=== PATIENT | female | born 1995 | race Two or more races ===

== ENCOUNTER 2018-07-17 21:11 | Emergency (ER) | payer BC ==
[2018-07-17 21:18] VITALS: BP 133/84; PULSE 74; TEMP 98.4; BMI 29.9
--- NOTE | 2018-07-17 21:21 | PDOC ---
Rapid Medical Evaluation Chief Complaint: Pain, Acute Medical Evaluation: 07/17/18 21:16 I have performed a brief in-person evaluation of this patient. The patient presents with a chief complaint of: Pertinent physical exam findings: pale abd bloated with pain to RLQ I have ordered the following: UA / Ucg / CBC/ CMP/ US Pelvis The patient will proceed to the ED for further evaluation. 07/17/18 21:16 07/17/18 21:22 Discharge Disposition - Diagnosis Abdominal pain - Referrals - Patient Instructions - Post Discharge Activity
[2018-07-17 21:35] LABS: BASO % 1.3 % (0-2.0); EOS % 3.8 % (0-4.5); HEMATOCRIT 42.9 % (32.4-45.2); HEMOGLOBIN 14.2 GM/dL (10.7-15.3); LYMPH % 33.5 % (8-40); MCH 30.4 pg (25.7-33.7); MCHC 33.2 g/dl (32.0-36.0); MEAN CELL VOLUME 91.5 fl (80-96); MEAN PLT VOLUME 8.7 fl (7.5-11.1); MONO % 6.4 % (3.8-10.2); PLATELET COUNT 278 K/MM3 (134-434); RBC 4.69 M/mm3 (3.60-5.2); RDW 13.7 % (11.6-15.6); WHITE BLOOD COUNT 10.4 K/mm3 (4.0-10.0)
[2018-07-17 21:40] LABS: HCG,QUALITATIVE URINE Negative
[2018-07-17 21:57] LABS: ALK PHOS 68 U/L (45-117); BILIRUBIN,TOTAL 0.2 mg/dL (0.2-1); BLOOD UREA NITROGEN 9 mg/dL (7-18); CALCIUM 9.3 mg/dL (8.5-10.1); CHLORIDE 103 mmol/L (98-107); CO2 31 mmol/L (21-32); CREATININE 0.6 mg/dL (0.55-1.3); GLUCOSE,RANDOM 99 mg/dL (74-106); POTASSIUM 4.3 mmol/L (3.5-5.1); SGOT/AST 11 U/L (15-37); SGPT/ALT 15 U/L (13-61); SODIUM 139 mmol/L (136-145); TOT PROT 7.6 g/dl (6.4-8.2)
[2018-07-17 21:59] LABS: ANION GAP 6 MMOL/L (8-16)
[2018-07-17 22:00] LABS: EPI CELLS 1.4 /HPF (0-5); URINE APPEARANCE CLEAR; URINE BACTERIA 280.7 /hpf (NEGATIVE); URINE BILIRUBIN NEGATIVE (NEGATIVE); URINE CASTS 59 /hpf (0-8); URINE COLOR YELLOW; URINE GLUCOSE (UA) NEGATIVE (NEGATIVE); URINE KETONE NEGATIVE (NEGATIVE); URINE LEUK ESTERASE 2+ (NEGATIVE); URINE NITRITE NEGATIVE (NEGATIVE); URINE PROTEIN NEGATIVE (NEGATIVE); URINE RBC 6 /hpf (0-4); URINE UROBILINOGEN 0.2 mg/dL (0.2-1.0); URINE WBC 103 /hpf (0-5)
--- NOTE | 2018-07-17 22:01 | PDOC ---
History of Present Illness - General Chief Complaint: Pain Stated Complaint: LOWER BACK PAIN Time Seen by Provider: 07/17/18 21:35 History Source: Patient Exam Limitations: No Limitations - History of Present Illness Travel History: No Initial Comments: 07/17/18 21:56 HISTORY OF PRESENT ILLNESS: This is a 22-year-old woman with past medical history of polycystic ovarian syndrome on metformin who presents emergency department for evaluation of right pelvic pain radiating from her lower back. Patient states the pain started approximately 5 days ago and is being constant since that time. She reports when the pain started she was laying down and relaxing on vacation in [place]. Patient denies any vaginal bleeding, vaginal discharge, diarrhea, constipation, rectal bleeding. Patient reports slight suprapubic pressure with tingling after voiding which started when providing urine sample here. No recent travel or sick contacts. PAST MEDICAL HISTORY: PCOS SURGICAL HISTORY: Denies ALLERGIES: No known drug allergies REVIEW OF SYSTEMS General/Constitutional: Denies fever or chills. Denies weakness, weight change. HEENT: Denies change in vision. Denies ear pain or discharge. Denies sore throat. Cardiovascular: Denies chest pain or shortness of breath. Respiratory: Denies cough, wheezing, or hemoptysis. Gastrointestinal: Denies nausea, vomiting, diarrhea or constipation. Denies rectal bleeding. Genitourinary: see HPI Musculoskeletal: see HPI Skin and breasts: Denies rash or easy bruising. Neurologic: Denies headache, vertigo, loss of consciousness, or loss of sensation. Psychiatric: Denies depression or anxiety. Endocrine: Denies increased thirst. Denies abnormal weight change. Hematologic/Lymphatic: Denies anemia, easy bleeding, or history of blood clots. Allergic/Immunologic: Denies hives or skin allergy. Denies latex allergy. PHYSICAL EXAM General Appearance: Well-appearing, appropriately dressed. No apparent distress , no intoxication. Respiratory/Chest: Lungs CTAB. No shortness of breath, chest tenderness, respiratory distress, accessory muscle use. No crackles, rales, rhonchi, stridor , wheezing, dullness Cardiovascular: RRR. S1, S2. No JVD, murmur, bradycardia, tachycardia. Gastrointestinal/Abdominal: Normal bowel sounds. Abdomen soft, non-distended. No tenderness or rebound tenderness. No organomegaly, pulsatile mass, guarding, hernia, hepatomegaly, splenomegaly. Lymphatic: No adenopathy, tenderness. Musculoskeletal/Extremities: Normal inspection. FROM of all extremities, normal capillary refill. Pelvis Stable. Bilateral CVA tenderness. No tenderness to extremities, pedal edema, swelling, erythema or deformity. No palpable muscle spasms in the lower back. Past History - Past Medical History Allergies/Adverse Reactions: Allergies Allergy/AdvReac Type Severity Reaction Status Date / Time No Known Allergies Allergy Verified 07/17/18 21:18 Home Medications: Ambulatory Orders Cephalexin Monohydrate [Keflex -] 500 mg PO Q8H #30 capsule 07/17/18 COPD: No Other medical history: PCOS - Suicide/Smoking/Psychosocial Hx Smoking History: Never smoked Have you smoked in the past 12 months: No Information on smoking cessation initiated: No Hx Alcohol Use: No Drug/Substance Use Hx: No *Physical Exam - Vital Signs Last Vital Signs Temp Pulse Resp BP Pulse Ox 98.4 F 74 17 133/84 100 07/17/18 21:16 07/17/18 21:16 07/17/18 21:16 07/17/18 21:16 07/17/18 21:16 ED Treatment Course - LABORATORY CBC & Chemistry Diagram: 07/17/18 21:24 07/17/18 21:24 - ADDITIONAL ORDERS Additional order review: Laboratory Results 07/17/18 21:28 Urine HCG, Qual Negative 07/17/18 21:24 RBC 4.69 MCV 91.5 MCHC 33.2 RDW 13.7 MPV 8.7 Neutrophils % 55.0 Lymphocytes % 33.5 Monocytes % 6.4 Eosinophils % 3.8 Basophils % 1.3 Medical Decision Making - Medical Decision Making 07/17/18 22:01 A/P: 22-year-old woman with lower back and lower abdominal pain for 5 days Differential diagnosis includes but is not limited to ovarian torsion, ectopic , ovarian cysts, pyelonephritis, renal calculi, TOA, STI, musculoskeletal Basic labs Ultrasound Urine Reassess 07/17/18 22:29 Ultrasound as read by Dr. Johnson: Several subcentimeter bilateral peripheral ovarian follicles are noted bilaterally. Note is made of a 2 cm dominant left ovarian follicle. The sonographic appearance is nonspecific in regards to polycystic ovarian syndrome. The ovaries appear unremarkable and overall size. No Doppler evidence of ovarian torsion, sensitivity 70%. Uterus demonstrates no discrete abnormality. Endometrial thickness presents unremarkable measuring 0.3 cm. No free intraperitoneal fluid seen. There is no obvious adnexal pathology. Laboratory testing is unremarkable. Urinalysis suggestive of urinary tract infection with leuk esterase 2+ with 103 wbc's on high-power field. I will discharge patient home with prescription for Keflex 500 mg to be taken 3 times a day for the next 14 days. *DC/Admit/Observation/Transfer Diagnosis at time of Disposition: Pyelonephritis - Discharge Dispostion Disposition: HOME Condition at time of disposition: Fair Decision to Admit order: No - Prescriptions Prescriptions: Cephalexin Monohydrate [Keflex -] 500 mg PO Q8H #30 capsule - Referrals - Patient Instructions Additional Instructions: Rest, drink lots of fluids: Teas, water, soups Avoid contact with others until fevers and symptoms resolved Lots of handwashing and good hygiene Continue [id number] medications for symptomatic relief Tylenol or Motrin for fever and pain Continue all of antibiotics until completed Followup with private physician in one week for repeat urinalysis/reevaluation Return to emergency department for worsened symptoms, fevers, dehydration aravind Sanches muchos lquidos: Ts, agua, sopas Evite el contacto con otros hasta que las fiebres y los sntomas se resuelvan Un montn de lavado de lindsay y buena higiene Contine los medicamentos sin receta para el alivio sintomtico Tylenol o Motrin para la fiebre y el dolor Continuar todos los antibiticos hasta completarse Seguimiento con mdico privado en ignacia semana para repetir anlisis de orina / reevaluacin Volver al servicio de urgencias por sntomas empeorados, fiebres, deshidratacin - Post Discharge Activity Forms/Work/School Notes: Back to Work
== END 2018-07-17 22:58 | disposition home or self-care (01) ==
LOC: JER 21:11
DX: N12 Tubulo-interstitial nephritis, not specified as acute or chronic (principal); E28.2 Polycystic ovarian syndrome; Z79.84 Long term (current) use of oral hypoglycemic drugs
CPT/HCPCS: 36415; 76830-TC; 80053; 81003; 84703; 85025; 99283-25